=== PATIENT | female | born 1960 | race Caucasian/White ===

== ENCOUNTER 2016-05-20 13:35 | Outpatient (CLI) | payer BC | END 2016-05-20 13:36 | disposition home or self-care (01) | DX: Z12.31 Encounter for screening mammogram for malignant neoplasm of breast (principal) ==

== ENCOUNTER 2016-05-20 13:36 | Outpatient (CLI) | payer BC | END 2016-05-20 13:37 | disposition home or self-care (01) | DX: N95.0 Postmenopausal bleeding (principal); D25.9 Leiomyoma of uterus, unspecified; R93.8 Abnormal findings on diagnostic imaging of other specified body structures ==

== ENCOUNTER 2016-09-24 11:12 | Outpatient (CLI) | payer BC | END 2016-09-24 11:13 | disposition home or self-care (01) | LOC: DI 11:12 | PROVIDERS: ATTEND Internal Medicine Cardiovascular Disease | DX: R01.1 Cardiac murmur, unspecified (principal); I10 Essential (primary) hypertension; I51.7 Cardiomegaly | CPT/HCPCS: 93306 ==

== ENCOUNTER 2016-11-05 11:09 | Outpatient (CLI) | payer BC | END 2016-11-05 11:10 | disposition home or self-care (01) | LOC: DI 11:09 | PROVIDERS: ATTEND Internal Medicine Cardiovascular Disease | DX: Q21.1 Atrial septal defect (principal) | CPT/HCPCS: 93308 ==

== ENCOUNTER 2017-04-13 14:03 | Outpatient (CLI) | payer BC ==
[2017-04-13 13:59] LABS: BASOPHILS # (AUTO) 0.1 10^3/uL (0.0-0.1); BASOPHILS % (AUTO) 0.7 %; EOSINOPHILS # (AUTO) 0.3 10^3/uL (0.0-0.7); EOSINOPHILS % (AUTO) 3.2 %; HCT - HEMATOCRIT 39.6 % (37.0-47.0); HGB - HEMOGLOBIN 13.2 g/dL (12.0-16.0); LYMPHOCYTES % (AUTO) 24.9 %; MEAN CORPUSCULAR HEMOGLOBIN 29.5 pg (27.0-31.0); MEAN CORPUSCULAR HGB CONC 33.4 g/dL (32.0-36.0); MEAN CORPUSCULAR VOLUME 88.3 fL (81.0-99.0); MEAN PLATELET VOLUME 8.3 fL (7.9-10.8); MONOCYTES # (AUTO) 0.4 10^3/uL (0.0-1.0); MONOCYTES % (AUTO) 5.6 %; NEUTROPHILS # (AUTO) 5.2 10^3/uL (1.5-6.6); NEUTROPHILS % (AUTO) 65.6 %; NUCLEATED RED BLOOD CELLS AUTO 0.1 /100WBC; RED BLOOD COUNT 4.48 10^6/uL (4.20-5.40); RED CELL DISTRIBUTION WIDTH 15.3 % (12.0-15.0)
[2017-04-13 14:43] LABS: ALBUMIN/GLOBULIN RATIO 1.4 (1.0-2.2); BILIRUBIN,TOTAL 0.9 mg/dL (0.2-1.0); BUN - BLOOD UREA NITROGEN 22 mg/dL (6-20); CALCIUM 9.3 mg/dL (8.5-10.3); CARBON DIOXIDE - CO2 27 mmol/L (21-32); CHLORIDE 105 mmol/L (101-111); CHOL/HDL RATIO 4.4 (<4.4); CHOLESTEROL 198 mg/dL; CREATININE 0.7 mg/dL (0.4-1.0); GFR - MDRD 86 (>89); GLUCOSE 103 mg/dL (70-100); HDL CHOLESTEROL 45 mg/dL; LDL/HDL RATIO 2.6 (<4.4); POTASSIUM 3.9 mmol/L (3.5-5.0); SODIUM 139 mmol/L (135-145); TOTAL PROTEIN 7.3 g/dL (6.7-8.2); TRIGLYCERIDES 179 mg/dL; URIC ACID 6.1 mg/dL (2.6-7.2); VLDL CHOLESTEROL 36 mg/dL
== END 2017-04-13 14:04 | disposition home or self-care (01) ==
LOC: LAB.WCP 14:03
PROVIDERS: ATTEND Family Medicine
DX: E78.5 Hyperlipidemia, unspecified (principal); E66.9 Obesity, unspecified; E79.0 Hyperuricemia without signs of inflammatory arthritis and tophaceous disease; I10 Essential (primary) hypertension
CPT/HCPCS: 36415; 80053; 80061; 84443; 84550; 85025

== ENCOUNTER 2017-09-14 21:58 | Outpatient (CLI) | payer BC ==
--- NOTE | 2017-09-15 10:04 | Ultrasound Report ---
PELVIC ULTRASOUND: 09/15/2017 CLINICAL INDICATION: Postmenopausal bleeding. COMPARISON: 05/20/2016. TECHNIQUE: Transabdominal pelvic ultrasound performed for global evaluation. Transvaginal pelvic ultrasound performed for detailed evaluation. Real-time scanning performed and static images obtained. FINDINGS: The uterus is anteverted, measuring 9.1 x 7.8 x 6.3 cm. The endometrium is thickened at 15 mm, and demonstrates small cystic lesions. Multiple leiomyomas are again seen. The largest, anterior subserosal, measures 3.4 cm. The ovaries are unremarkable, with the right measuring 2.0 x 1.8 x 1.1 cm and the left measuring 2.3 x 1.8 x 1.1 cm. No free fluid is present. IMPRESSION: 1. THICKENED, HETEROGENEOUS ENDOMETRIUM, NOW DEMONSTRATING MULTIPLE SMALL CYSTIC SPACES. 2. MULTIPLE LEIOMYOMAS. 3. NORMAL OVARIES. TD: 09/15/2017 09:43
== END 2017-09-14 21:59 | disposition home or self-care (01) ==
LOC: DI 21:58
PROVIDERS: ATTEND Obstetrics & Gynecology
DX: N95.0 Postmenopausal bleeding (principal); D25.9 Leiomyoma of uterus, unspecified
CPT/HCPCS: 76830; 76856

== ENCOUNTER 2017-12-11 11:13 | Outpatient (CLI) | payer BC ==
[2017-12-11 11:39] LABS: BASOPHILS % (AUTO) 0.4 %; EOSINOPHILS # (AUTO) 0.1 10^3/uL (0.0-0.7); EOSINOPHILS % (AUTO) 1.7 %; HGB - HEMOGLOBIN 13.8 g/dL (12.0-16.0); LYMPHOCYTES # (AUTO) 2.3 10^3/uL (1.5-3.5); LYMPHOCYTES % (AUTO) 32.4 %; MEAN CORPUSCULAR HEMOGLOBIN 29.7 pg (27.0-31.0); MEAN CORPUSCULAR HGB CONC 33.4 g/dL (32.0-36.0); MEAN CORPUSCULAR VOLUME 89.1 fL (81.0-99.0); MEAN PLATELET VOLUME 8.3 fL (7.9-10.8); MONOCYTES # (AUTO) 0.4 10^3/uL (0.0-1.0); MONOCYTES % (AUTO) 6.2 %; NEUTROPHILS # (AUTO) 4.3 10^3/uL (1.5-6.6); NEUTROPHILS % (AUTO) 59.3 %; PLT - PLATELET COUNT 261 10^3/uL (130-450); RED BLOOD COUNT 4.65 10^6/uL (4.20-5.40); RED CELL DISTRIBUTION WIDTH 15.6 % (12.0-15.0); WHITE BLOOD COUNT 7.2 x10^3/uL (4.8-10.8)
== END 2017-12-11 11:14 | disposition home or self-care (01) ==
LOC: LAB 11:13
PROVIDERS: ATTEND Obstetrics & Gynecology
DX: Z01.812 Encounter for preprocedural laboratory examination (principal); N95.0 Postmenopausal bleeding; N85.00 Endometrial hyperplasia, unspecified
CPT/HCPCS: 36415; 85025; 87640

== ENCOUNTER 2017-12-13 09:22 | Day surgery (SDC) | payer BC ==
--- NOTE | 2017-12-11 11:49 | PREOP HISTORY & PHYSICAL ---
DATE OF SERVICE: 12/13/2017 Physician: Edy Desir MD PREOPERATIVE DIAGNOSES 1. Postmenopausal bleeding. 2. Thickened endometrium. 3. Multiple leiomyoma. 4. Hypertension. 5. Morbid obesity, body mass index 45.8. HISTORY OF PRESENT ILLNESS: Patient is a 56-year-old 1 para 1, postmenopausal woman who reports intermittent bouts of uterine bleeding. Pelvic ultrasound reveals a thickened endometrium at 15 mm with multiple small leiomyoma, the largest being 3.4 and subserosal. Ovaries are normal. She underwent an endometrial biopsy, which revealed late secretory endometrium with negative endometritis, atypia or malignancy. Due to continued bleeding and the 10% false negative rate of endometrial biopsy, a better tissue diagnosis was required. Additionally, investigation of her leiomyomas to ensure no submucosal leiomyomas that could account for her bleeding. Pap smear was normal (08/2017). Patient has a history of a clark vaginal without difficulty other than preeclampsia. PAST MEDICAL HISTORY 1. Patient is a controlled hypertensive. 2. She has been worked up by Cardiology including an echocardiogram and EKG. 3. She has experienced a dramatic loss of weight with diet and exercise, 70 pounds. 4. She did have a history of optic neuritis, that neurology workup is negative. PAST SURGICAL HISTORY: The patient underwent colonoscopy in 2014, is normal. ALLERGIES: SENSITIVE TO LATEX. MEDICATIONS 1. Erythromycin for rosacea. 2. Mini dose aspirin. 3. Lisinopril. 4. Allopurinol. 5. Multiple vitamins and iron. 6. Fish oil. FAMILY HISTORY: Paternal grandmother breast cancer, lymphoma. Mother skin cancer, mother uterine cancer. Paternal grandmother diabetes. Mother, father hypertension. Father with hypercholesterolemia, mother and sister. SOCIAL HISTORY: Currently , no children at home. No drug, tobacco, or alcohol use. 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 PHYSICAL EXAMINATION GENERAL: Well groomed, pleasant, anxious. Obese. HEENT: Dentition in good repair. EOMI. Nonicteric sclerae. NECK: No thyromegaly. LUNGS: Clear, but distant. CARDIAC: Regular. No murmur, no gallop. ABDOMEN: Large pannus, nondistended, no organomegaly. No tenderness. EXTERNAL GENITALIA: Normal Bartholin glands, no atrophy, no lesions, some lichenoid change present. VAGINA: Grade 1 cystocele. CERVIX: No abnormal lesions or secretions. No ulcerations. UTERUS: Normal size, but difficult to tell due to body habitus. ADNEXA: No masses or tenderness noted. Difficult exam due to body habitus. EXTREMITIES: Mild pedal edema. Moves all four extremities well. NEUROLOGIC: Grossly intact motor and sensory. Cranial nerves intact. SKIN: No rash or broken skin noted. ASSESSMENT AND PLAN: The patient is a 56-year-old woman who continues to have endometrial bleeding, and known thickened endometrium. Given her morbid obesity , there is increased risk for hyperplasia and carcinoma. Endometrial biopsy has a 10-12% false positive/false negative rate. Given her fibroids, the sample may not have been accurate. Hysteroscopy is the gold standard for diagnosing uterine bleeding. PLAN: Hysteroscopy with MyoSure including dilatation and curettage, and possible myomectomy. Risks, benefits, and alternatives were reviewed. ACOG brochure reviewed point by point. The patient is fairly healthy, despite age and weight. She is a good candidate for hysteroscopy, which may be done under regional anesthesia, depending on discussion with Anesthesia. Note, her grandmother had an anesthesia REACTION and this has heightened her anxiety. Informed consent paperwork and orders have already been signed and submitted. TD: 12/11/2017 11:02 LEESA
[~2017-12-13 09:22] MED LIST: DEXAMETHASONE 4 MG/ML VIAL IVP ONE; GLYCOPYRROLATE 1 MG/5 ML VIAL IVP ONE; KETOROLAC 30 MG/ML VIAL IVP ONE; MIDAZOLAM 2 MG/2 ML VIAL IVP ONE; NEOSTIGMINE 1 MG/1 ML 10 ML MDV IVP ONE; ONDANSETRON 4 MG/2 ML VIAL IVP ONE; PROPOFOL 200 MG/20 ML VIAL IVP ONE; ROCURONIUM 50 MG/5 ML VIAL IVP ONE; fentaNYL 100 MCG/2 ML VIAL IVP ONE
--- NOTE | 2017-12-13 09:25 | ANESTHESIA ---
Pre-Anesthesia VS, & Labs - Diagnosis Post-menopausal Bleeding; Thickened endometrium - Procedure Myosure Hysterscopy, D&C, possible myomectomy Vital Signs: Vital Signs - 24 hr 12/13/17 09:44 Temperature 36.6 C Respiratory 18 Rate Blood Pressure 135/73 H O2 Saturation 98 Pulse 72 Height 5 ft 7 in Weight (kg) 128.7 kg BMI 44.4 - NPO Last Fluid Intake: 0715 4oz H2O Last Food Intake: 1930 - Is Patient ?: Not Applicable - Lab Results Lab results reviewed: Yes Other Lab Results: Lab results from 12/11/2017 WBC-7.2 Hgb 13.8 Hct 41.4 Plat 261 Home Medications and Allergies Home Medications: Ambulatory Orders Medication Instructions Recorded Confirmed Allopurinol 300 mg PO DAILY 12/12/17 12/13/17 Aspirin [Aspirin EC] 81 mg PO DAILY 12/12/17 12/13/17 Erythromycin Base [Erythromycin] 500 mg PO BID 12/12/17 12/13/17 Furosemide 40 mg PO DAILY 12/12/17 12/13/17 Lisinopril 10 mg PO DAILY 12/12/17 12/13/17 Multivitamin [Multiple Vitamins] 1 each PO DAILY 12/12/17 12/13/17 [place]-3/Dha/Epa/Fish Oil [Fish Oil 1 each PO DAILY 12/12/17 12/13/17 1,000 mg Softgel] Solifenacin Succinate [Vesicare] 5 mg PO DAILY 12/12/17 12/13/17 Allergies/Adverse Reactions: Allergies Allergy/AdvReac Type Severity Reaction Status Date / Time codeine Allergy Anxiety Verified 12/12/17 11:35 gelatin Allergy Unknown Verified 12/12/17 11:39 latex Allergy Rash Verified 12/12/17 11:35 sulfite Allergy Headache Verified 12/12/17 11:35 Anes History & Medical History - Anesthetic History Anesthesia Complications: reports: Other-see comment (Reports elderly grandmother was slow to wake from anesthesia) Family history of Anesthesia Complications: Denies Family history of Malignant Hyperthermia: Denies - Medical History Cardiovascular: reports: Hypertension Pulmonary: reports: None Gastrointestinal: reports: None, Other (Morbidly Obese) Urinary: reports: Incontinence, Frequency Neuro: reports: None Musculoskeletal: reports: Gout Endocrine/Autoimmune: reports: None Blood Disorders: reports: None Skin: reports: Rosacea Smoking Status: Never smoker Psychosocial: reports: No issues indicated - Surgical History General: Colonoscopy Eyes Ears Nose Throat (EENT): Cataracts Results - Echo Results Echo Results: Report reviewed (EF-60-65%, No significant valve disease, mild LVH ) Exam General: Alert, Oriented x3, Cooperative, No acute distress Dental: WNL Mouth Openin Fingerbreadth Neck Mobility: Normal Mallampati classification: II Thyromental Distance: 4-6 cm Respiratory: Lungs clear, Normal breath sounds, No respiratory distress, No accessory muscle use Cardiovascular: Regular rate, Normal S1, Normal S2, No murmurs Mental/Cognitive Status: Alert/Oriented X3, Normal for patient Cognitive Status: Within normal limits Plan Anesthesia Type: General Consent for Procedure(s) Verified and Reviewed: Yes Code Status: Attempt Resuscitation ASA classification: 2-Mild systemic disease Is this case an emergency?: No
[2017-12-13] MEDS ORDERED: LACTATED RINGERS 1,000 ML IV ONE ×2 (09:50→12:11)
[2017-12-13] MEDS ORDERED: BUPIVACAINE 0.25%-EPI 1:200000 PF 30 ML VIAL ONE (10:33)
--- NOTE | 2017-12-13 12:38 | OPERATIVE REPORT ---
Operative Report - General Pre-Op Diagnosis: 1.Postmenopausal bleeding2. Thickened endometrium 3. Morbid obesity Procedure Performed: Diagnostic hysteroscopy; Myosure polypectomy and myomectomy; endometrial curettage Post Op Diagnosis: Extensive endometrial polyps; endocervical polyps; small fundal submucosal - Procedure Note Primary Surgeon: Edy Desir MD, F ACOG Anesthesia Provider: Mo Blanchard, certified nurse enrollment management manager Anesthesia Technique: General ET tube Pathology: Endocervical curetting; polyps and endometrial shaving(Contains part of myoma) IV Fluids (mL): 1,200 Estimated Blood Loss (mL): 10 Urine Output (mL): 100 (Approximated, patient straight cathed at the beginning of the procedure) Complications: None
[2017-12-13 13:46] VITALS: BP 118/62
--- NOTE | 2017-12-13 17:21 | OPERATIVE REPORT ---
DATE OF SERVICE: 12/13/2017 Physician: Edy Desir MD PREOPERATIVE DIAGNOSES 1. Postmenopausal bleeding. 2. Thickened endometrium on ultrasound (approximately 15 mm). 3. Multiple leiomyoma. 4. Hypertension. 5. Morbid obesity, BMI 45.8. POSTOPERATIVE DIAGNOSES 1. Multiple endometrial benign-appearing polyps. 2. Small submucosal fibroid in the right fundus. 3. Endocervical polyp. 4. Cervicitis. 5. Hematuria. PROCEDURES 1. Diagnostic hysteroscopy. 2. Hysteroscopic polypectomy with MyoSure. 3. Hysteroscopic myomectomy with MyoSure. 4. Endocervical curettage. SURGEON: Edy Desir MD, FACOG, FICS. ANESTHESIA PROVIDER: Farhana Blanchard, certified nurse rinkman. ANESTHESIA TECHNIQUE: General, ET tube placed. PATHOLOGY 1. Endocervical curettings. 2. Endometrial polyps and endometrial shavings, including myoma specimen. SPECIMENS IV FLUIDS: 1200 mL ESTIMATED BLOOD LOSS: 10 mL URINE OUTPUT: 100 mL approximately, patient straight catheterized at the beginning of the procedure. COMPLICATIONS: None. OPERATIVE FINDINGS 1. Exam of the external genitalia finds no evident lesions. Vagina has a large cystocele with UV mobility and uterine mobility. The cervix os has a large ectropion and seems somewhat inflamed. Uterus palpates globular and with retroversion. Preprocedure sounding is 6.5 cm. 2. Hysteroscopic examination finds endocervical polyps at the lower distal half of the canal. The entire cavity is filled with multiple benign-appearing polyps, some cystic and others fleshy, possibly degenerating leiomyoma. After shaving the lining to provide better visualization., there was an area in the right fundus anteriorly that was found to be a small leiomyoma, which was subsequently removed. Postoperative photos document removal of all polypoid and significant leiomyoma. 3. In inspecting the urethral meatus, there was blood stained urine present. Preoperative catheterization was not traumatic, and therefore, we repeated a catheterization to ensure there was no intracystic source of hematuria. TECHNIQUE: Prior to the procedure, I met the patient and her daughter in the OR holding room and reviewed indications, mechanics, risks/benefits and alternatives. All questions were answered, and informed consent was signed. Patient was brought to the operating room, placed in supine position on the OR table. She was uneventfully induced and intubated. She was moved to the low dorsal lithotomy position in [facility]. She was prepped and draped in the customary sterile fashion. Timeout briefing was done per protocol. Exam under anesthesia was conducted. Clamshell speculum was placed in the cervix, was totally visualized. There seemed to be cervicitis, and therefore, endocervical curettage was done to ensure there was no hidden dysplastic change. Uterus was sounded to 6.5 cm. A gentle application of Hegar probes was done to dilate the cervix to a #6. MyoSure pump was calibrated and zeroed. Video hysteroscope was white balanced and prepared for hysteroscopy. It was uneventfully inserted through the endocervical canal, displacing several polyps. The endometrium was then assessed and photographed. A majority of the endometrium was initially obscured due to polyps. A MyoSure light probe was then introduced into the uterine cavity. Under hysteroscopic visualization, all the polyps were systematically excised. Reference photos. In the right fundal area, there was a nodular defect that was felt to be submucosal fibroid. This was uneventfully shelled out. In the void, there was no bleeding. The hysteroscope then was used to visualize the endocervical canal using the Myosure. In a systematic fashion, the endocervical polyps were uneventfully excised in total. Reference photos. There was no significant bleeding. Packing material was placed in the vaginal canal. Due to aforementioned hematuria, straight cath urine specimen was obtained and sent. Patient was uneventfully awakened from general anesthesia and extubated. She was taken to the recovery room in stable condition. Total hysteroscopic fluid deficit was 970. Intraoperative events and photos were reviewed with the patient. Warning sign and callback instructions were given. Patient will be discharged when stable. PLAN 1. Follow up will be in 2 weeks. 2. Patient is recommended to use ibuprofen for pain control, and an additional prescription for Percocet was given. TD: 12/13/2017 13:16 LEESA
== END 2017-12-13 09:23 | disposition home or self-care (01) ==
LOC: SDS 09:22
PROVIDERS: ATTEND Obstetrics & Gynecology
PROC: 0UB98ZZ Excision of Uterus, Via Natural or Artificial Opening Endoscopic (ICD-10-PCS; 2017-12-13)
PROC: 0UBC8ZZ Excision of Cervix, Via Natural or Artificial Opening Endoscopic (ICD-10-PCS; principal; 2017-12-13 10:30)
PROC: 0UDB8ZX Extraction of Endometrium, Via Natural or Artificial Opening Endoscopic, Diagnostic (ICD-10-PCS; 2017-12-13 10:30)
DX: N95.0 Postmenopausal bleeding (principal); R93.8 Abnormal findings on diagnostic imaging of other specified body structures; E66.01 Morbid (severe) obesity due to excess calories; Z68.42 Body mass index [BMI] 45.0-49.9, adult; N84.0 Polyp of corpus uteri; D25.0 Submucous leiomyoma of uterus; I10 Essential (primary) hypertension; N72 Inflammatory disease of cervix uteri; R31.9 Hematuria, unspecified
CPT/HCPCS: 58561; J7120

== ENCOUNTER 2018-05-01 08:31 | Outpatient (CLI) | payer BC ==
[2018-05-01 12:37] LABS: ALBUMIN 4.2 g/dL (3.2-5.5); ALBUMIN/GLOBULIN RATIO 1.7 (1.0-2.2); ALKALINE PHOSPHATASE 82 IU/L (42-121); ALT ALANINE AMINOTRANSFERASE 18 IU/L (10-60); AST ASPARTATE AMINOTRANSFERASE 17 IU/L (10-42); BILIRUBIN,TOTAL 1.4 mg/dL (0.2-1.0); BUN - BLOOD UREA NITROGEN 21 mg/dL (6-20); CALCIUM 9.1 mg/dL (8.5-10.3); CARBON DIOXIDE - CO2 29 mmol/L (21-32); CHLORIDE 102 mmol/L (101-111); CHOL/HDL RATIO 4.5 (<4.4); CHOLESTEROL 222 mg/dL; CREATININE 0.6 mg/dL (0.4-1.0); GFR - MDRD 103 (>89); GLUCOSE 103 mg/dL (70-100); HDL CHOLESTEROL 49 mg/dL; LDL CHOLESTEROL,CALCULATED 149 mg/dL; SODIUM 138 mmol/L (135-145); TOTAL PROTEIN 6.7 g/dL (6.7-8.2); VLDL CHOLESTEROL 24 mg/dL
[2018-05-01 12:43] LABS: BASOPHILS % (AUTO) 0.6 %; EOSINOPHILS # (AUTO) 0.2 10^3/uL (0.0-0.7); EOSINOPHILS % (AUTO) 2.7 %; HGB - HEMOGLOBIN 13.4 g/dL (12.0-16.0); LYMPHOCYTES # (AUTO) 1.7 10^3/uL (1.5-3.5); LYMPHOCYTES % (AUTO) 25.8 %; MEAN CORPUSCULAR HEMOGLOBIN 29.8 pg (27.0-31.0); MEAN CORPUSCULAR HGB CONC 33.9 g/dL (32.0-36.0); MEAN CORPUSCULAR VOLUME 87.8 fL (81.0-99.0); MEAN PLATELET VOLUME 7.6 fL (7.9-10.8); MONOCYTES # (AUTO) 0.4 10^3/uL (0.0-1.0); MONOCYTES % (AUTO) 5.9 %; NEUTROPHILS # (AUTO) 4.2 10^3/uL (1.5-6.6); PLT - PLATELET COUNT 263 10^3/uL (130-450); RED CELL DISTRIBUTION WIDTH 14.7 % (12.0-15.0); WHITE BLOOD COUNT 6.5 x10^3/uL (4.8-10.8)
[2018-05-01 13:11] LABS: HB2 TOTAL 14.4 g/dL; HEMOGLOBIN A1C 0.49 g/dL; HEMOGLOBIN A1C % 5.3 % (4.6-6.2)
== END 2018-05-01 23:59 | disposition home or self-care (01) ==
LOC: LAB.WCP 08:31
PROVIDERS: ATTEND Family Medicine
DX: I10 Essential (primary) hypertension (principal); E78.5 Hyperlipidemia, unspecified; R73.01 Impaired fasting glucose
CPT/HCPCS: 36415; 80053; 80061; 83036; 83721; 85025

== ENCOUNTER 2019-01-22 15:10 | Outpatient (CLI) | payer BC ==
--- NOTE | 2019-01-23 08:46 | Mammography Report ---
Reason: ROUTINE MAMMO Procedure Date: 01/22/2019 Accession Number: [id number] / [id number] Procedure: MGN - Screening Mammo Dig Bilat CPT Code: FULL RESULT: EXAM: Screening Mammo Dig Bilat DATE: 01/22/2019 3:33 PM CLINICAL HISTORY: Screening TECHNIQUE: (B) - Bilateral CC and MLO views were obtained. COMPARISON: 05/20/2016, 05/12/2015 PARENCHYMAL PATTERN: (A) - The breasts demonstrate scattered fibroglandular densities bilaterally. FINDINGS: Unchanged tiny right axillary tail intramammary lymph node of no significance. There are no suspicious masses, calcifications, or areas of distortion. IMPRESSION: Negative examination. BI-RADS category 1. RECOMMENDATION: (ANNUAL) - Recommend routine annual screening mammography. BI-RADS CATEGORY: (1) - Negative. STANDARD QUALIFYING STATEMENTS: 1. This examination was not reviewed with the aid of Computer-Aided Detection (CAD). 2. A negative or benign imaging report should not preclude biopsy if clinically suspicious findings are present. 3. Dense breasts may obscure an underlying neoplasm. 4. This examination was reviewed without the aid of 3D breast imaging (tomosynthesis).
== END 2019-01-22 15:11 | disposition home or self-care (01) ==
LOC: DI.N 15:10
DX: Z12.31 Encounter for screening mammogram for malignant neoplasm of breast (principal)
CPT/HCPCS: 77067

== ENCOUNTER 2019-05-24 08:00 | Outpatient (CLI) | payer BC ==
[2019-05-24 12:47] LABS: BASOPHILS % (AUTO) 0.4 %; EOSINOPHILS # (AUTO) 0.1 10^3/uL (0.0-0.7); EOSINOPHILS % (AUTO) 1.7 %; HGB - HEMOGLOBIN 12.5 g/dL (12.0-16.0); LYMPHOCYTES # (AUTO) 1.8 10^3/uL (1.5-3.5); LYMPHOCYTES % (AUTO) 23.5 %; MEAN CORPUSCULAR HGB CONC 30.6 g/dL (32.0-36.0); MEAN CORPUSCULAR VOLUME 91.5 fL (81.0-99.0); MEAN PLATELET VOLUME 9.8 fL (7.9-10.8); MONOCYTES # (AUTO) 0.5 10^3/uL (0.0-1.0); MONOCYTES % (AUTO) 6.6 %; NEUTROPHILS # (AUTO) 5.1 10^3/uL (1.5-6.6); NEUTROPHILS % (AUTO) 67.5 %; PLT - PLATELET COUNT 272 10^3/uL (130-450); RED BLOOD COUNT 4.46 10^6/uL (4.20-5.40); RED CELL DISTRIBUTION WIDTH 14.7 % (12.0-15.0); WHITE BLOOD COUNT 7.6 x10^3/uL (4.8-10.8)
[2019-05-24 13:02] LABS: ALBUMIN 4.1 g/dL (3.2-5.5); ALBUMIN/GLOBULIN RATIO 1.6 (1.0-2.2); ALKALINE PHOSPHATASE 68 IU/L (42-121); ALT ALANINE AMINOTRANSFERASE 17 IU/L (10-60); AST ASPARTATE AMINOTRANSFERASE 15 IU/L (10-42); BILIRUBIN,TOTAL 1.1 mg/dL (0.2-1.0); BUN - BLOOD UREA NITROGEN 26 mg/dL (6-20); CALCIUM 8.9 mg/dL (8.5-10.3); CARBON DIOXIDE - CO2 26 mmol/L (21-32); CHLORIDE 102 mmol/L (101-111); CHOL/HDL RATIO 4.7 (<4.4); CHOLESTEROL 208 mg/dL; CREATININE 0.7 mg/dL (0.4-1.0); GFR - MDRD 86 (>89); GLUCOSE 91 mg/dL (70-100); HDL CHOLESTEROL 44 mg/dL; LDL CHOLESTEROL,CALCULATED 135 mg/dL; LDL/HDL RATIO 3.1 (<4.4); SODIUM 140 mmol/L (135-145); TOTAL PROTEIN 6.7 g/dL (6.7-8.2); URIC ACID 5.6 mg/dL (2.6-7.2); VLDL CHOLESTEROL 29 mg/dL
== END 2019-05-24 23:59 | disposition home or self-care (01) ==
LOC: LAB.WCP 08:00
PROVIDERS: ATTEND Family Medicine
DX: E78.5 Hyperlipidemia, unspecified (principal); E79.0 Hyperuricemia without signs of inflammatory arthritis and tophaceous disease
CPT/HCPCS: 36415; 80053; 80061; 83721; 84443; 84550; 85025

== ENCOUNTER 2019-08-20 13:15 | Emergency (ER) | payer BC ==
--- NOTE | 2019-08-20 13:26 | ED Physician Documentation ---
PD HPI ABD PAIN - Stated complaint Stated Complaint: L SIDE PX - History obtained from History obtained from: Patient - History of Present Illness Timing - onset: How many hours ago (5) Timing - duration: Hours (5) Timing - details: Abrupt onset, Still present Quality: Aching, Sharp, Pain Location: LLQ Radiation: Left flank Improved by: No: Eating, Laying still, Position Worsened by: No: Eating, Moving, Breathing, Position, Palpation Associated symptoms: Nausea, Loss of appetite. No: Fever, Vomiting, Diarrhea, Chest pain, Near syncope / syncope Similar symptoms before: Has not had sx before Recently seen: Not recently seen Review of Systems Constitutional: denies: Fever, Chills, Myalgias Nose: denies: Rhinorrhea / runny nose, Congestion Throat: denies: Sore throat Cardiac: denies: Chest pain / pressure Respiratory: denies: Cough GI: reports: Abdominal Pain, Nausea. denies: Vomiting, Diarrhea : denies: Dysuria, Hematuria Skin: denies: Rash, Lesions Musculoskeletal: reports: Back pain. denies: Neck pain Neurologic: denies: Generalized weakness, Focal weakness, Numbness, Near syncope PD PAST MEDICAL HISTORY - Past Medical History Neuro: None GI: None, Other (Morbidly Obese) : None - Present Medications Home Medications: Ambulatory Orders Medication Instructions Recorded Confirmed Aspirin [Aspirin EC] 81 mg PO DAILY 12/12/17 12/13/17 Erythromycin Base [Erythromycin] 500 mg PO BID 12/12/17 12/13/17 Furosemide 40 mg PO DAILY 12/12/17 12/13/17 Multivitamin [Multiple Vitamins] 1 each PO DAILY 12/12/17 12/13/17 [place]-3/Dha/Epa/Fish Oil [Fish Oil 1 each PO DAILY 12/12/17 12/13/17 1,000 mg Softgel] Solifenacin Succinate [Vesicare] 5 mg PO DAILY 12/12/17 12/13/17 allopurinoL [Allopurinol] 300 mg PO DAILY 12/12/17 12/13/17 lisinopriL [Lisinopril] 10 mg PO DAILY 12/12/17 12/13/17 Ibuprofen [Motrin] 600 mg PO TID PRN #25 tab 08/20/19 Ondansetron Odt [Zofran] 4 mg TL Q6H PRN #20 tablet 08/20/19 Oxycodone HCl/Acetaminophen 1 each PO Q4H PRN #20 tablet 08/20/19 [Percocet 5-325 mg Tablet] Tamsulosin [Flomax] 0.4 mg PO DAILY #5 capsule 08/20/19 - Allergies Allergies/Adverse Reactions: Allergies Allergy/AdvReac Type Severity Reaction Status Date / Time codeine Allergy Anxiety Verified 08/20/19 13:26 gelatin Allergy Unknown Verified 08/20/19 13:26 latex Allergy Rash Verified 08/20/19 13:26 sulfite Allergy Headache Verified 08/20/19 13:26 - Social History Smoking Status: Never smoker PD ED PE NORMAL - Vitals Vital signs reviewed: Yes - General General: Alert and oriented X 3, Well developed/nourished, Other (Appears in considerable pain and has spontaneous movement without improvement) - HEENT HEENT: Pharynx benign - Neck Neck: Supple, no meningeal sign, No adenopathy - Cardiac Cardiac: RRR, No murmur - Respiratory Respiratory: Clear bilaterally - Abdomen Abdomen: Normal bowel sounds, Soft, Non tender, Non distended, No organomegaly, Other (obese) - Back Back: No spinal TTP, Other (Moderate right CVA tenderness) - Derm Derm: Normal color, Warm and dry - Neuro Neuro: Alert and oriented X 3, No motor deficit, Normal speech Results - Vitals Vitals: Vital Signs - 24 hr 08/20/19 08/20/19 08/20/19 13:18 14:34 15:13 Temperature 36.7 C 36.8 C Heart Rate 86 84 68 Respiratory 24 18 20 Rate Blood Pressure 159/96 H 133/73 H 123/73 O2 Saturation 99 99 100 Oxygen O2 Source Room air - Labs Labs: Laboratory Tests 08/20/19 08/20/19 08/20/19 13:51 13:51 13:57 WBC 12.7 H RBC 4.91 Hgb 14.5 Hct 44.2 MCV 90.0 MCH 29.5 MCHC 32.8 RDW 14.7 Plt Count 279 MPV 9.8 Neut # (Auto) 11.3 H Lymph # (Auto) 1.0 L Walsh # (Auto) 0.3 Eos # (Auto) 0.0 Baso # (Auto) 0.0 Absolute Nucleated RBC 0.00 Nucleated RBC % 0.0 Sodium 138 Potassium 4.1 Chloride 101 Carbon Dioxide 26 Anion Gap 11.0 BUN 28 H Creatinine 0.8 Estimated GFR (MDRD) 73 L Glucose 131 H Calcium 9.4 Total Bilirubin 1.5 H AST 18 ALT 21 Alkaline Phosphatase 103 Total Protein 7.9 Albumin 4.8 Globulin 3.1 Albumin/Globulin Ratio 1.5 Lipase 26 Urine Color YELLOW Urine Clarity CLEAR Urine pH 5.0 Ur Specific [place] 1.010 Urine Protein NEGATIVE Urine Glucose (UA) NEGATIVE Urine Ketones NEGATIVE Urine Occult Blood MODERATE H Urine Nitrite NEGATIVE Urine Bilirubin NEGATIVE Urine Urobilinogen 0.2 (NORMAL) Ur Leukocyte Esterase NEGATIVE Urine RBC 0-5 Urine WBC 0-3 Ur Squamous Epith Cells RARE Squamous Urine Bacteria None Seen Ur Microscopic Review INDICATED Urine Culture Comments NOT INDICATED - Rads (name of study) KUB CT Radiology: Prelim report reviewed (left 4 mm ureteral stone with moderate hydronephrosis. No other acute process. Incidental large gallstone. ), See rad report PD MEDICAL DECISION MAKING - ED course Complexity details: re-evaluated patient (Much improved with IV medications here. We discussed the expected course and treatment for the ureterolithiasis. She is comfortable for discharge.), considered differential, d/w patient Departure - Departure Disposition: 01 Home, Self Care Clinical Impression: Flank pain, acute, Ureterolithiasis Condition: Stable Record reviewed to determine appropriate education?: Yes Instructions: ED Stone Renal W Colic Follow-Up: Dagoberto Parada MD [Primary Care Provider] - Adalid Emmanuel MD [Provider Admit Priv/Credential] - Prescriptions: Ibuprofen [Motrin] 600 mg PO TID PRN #25 tab PRN Reason: Pain Ondansetron Odt [Zofran] 4 mg TL Q6H PRN #20 tablet PRN Reason: Nausea / Vomiting Oxycodone HCl/Acetaminophen [Percocet 5-325 mg Tablet] 1 each PO Q4H PRN #20 tablet PRN Reason: pain Tamsulosin [Flomax] 0.4 mg PO DAILY #5 capsule Comments: Adequate hydration to help improve flow through the the ureter. There is no need to over hydrate per se. Anti-inflammatories such as ibuprofen 3 times a day for the next several days to a week. Add ondansetron if needed for nausea and Tylenol or oxycodone as needed for worse pain. Kidney stones can be quite painful so return if the oral medications are not adequate. Most the time once it quiets down like it is currently, it will be controllable with oral medicines at home. Add tamsulosin daily to help reduce ureteral spasms and help promote the stone passage. Follow-up with your primary care or urology if not improved over the next several days to week and return sooner if worse symptoms. Discharge Date/Time: 08/20/19 15:34
[2019-08-20] MEDS ORDERED: ONDANSETRON 4 MG/2 ML VIAL IVP STA (13:46)
[2019-08-20] MEDS ORDERED: KETOROLAC 30 MG/ML VIAL IVP STA (13:46)
[2019-08-20] MEDS ORDERED: HYDROmorphone 1 MG/ML CARPUJECT IVP STA (13:46)
[2019-08-20 14:03] LABS: BASOPHILS % (AUTO) 0.3 %; HGB - HEMOGLOBIN 14.5 g/dL (12.0-16.0); MEAN CORPUSCULAR HEMOGLOBIN 29.5 pg (27.0-31.0); MEAN CORPUSCULAR HGB CONC 32.8 g/dL (32.0-36.0); MEAN PLATELET VOLUME 9.8 fL (7.9-10.8); MONOCYTES # (AUTO) 0.3 10^3/uL (0.0-1.0); MONOCYTES % (AUTO) 2.6 %; NEUTROPHILS # (AUTO) 11.3 10^3/uL (1.5-6.6); NEUTROPHILS % (AUTO) 88.6 %; PLT - PLATELET COUNT 279 10^3/uL (130-450); RED BLOOD COUNT 4.91 10^6/uL (4.20-5.40); RED CELL DISTRIBUTION WIDTH 14.7 % (12.0-15.0); WHITE BLOOD COUNT 12.7 x10^3/uL (4.8-10.8)
[2019-08-20 14:14] LABS: BILIRUBIN,URINE NEGATIVE (NEGATIVE); GLUCOSE, URINE (UA) NEGATIVE (NEGATIVE); KETONES,URINE (UA) NEGATIVE (NEGATIVE); LEUKOCYTE ESTERASE, URINE NEGATIVE (NEGATIVE); NITRITE,URINE NEGATIVE (NEGATIVE); OCCULT BLOOD,URINE MODERATE (NEGATIVE); PROTEIN,URINE NEGATIVE (NEGATIVE); UROBILINOGEN,URINE 0.2 (NORMAL) E.U./dL (NORMAL)
[2019-08-20 14:16] LABS: CLARITY,URINE CLEAR (CLEAR)
[2019-08-20 14:18] LABS: ALBUMIN 4.8 g/dL (3.2-5.5); ALBUMIN/GLOBULIN RATIO 1.5 (1.0-2.2); BILIRUBIN,TOTAL 1.5 mg/dL (0.2-1.0); CALCIUM 9.4 mg/dL (8.5-10.3); CREATININE 0.8 mg/dL (0.4-1.0); TOTAL PROTEIN 7.9 g/dL (6.7-8.2)
[2019-08-20 14:22] LABS: BACTERIA,URINE None Seen /HPF (None Seen); RBC,URINE 0-5 /HPF (0-5); SQUAMOUS EPITHELIAL CELL,UR RARE Squamous (<= Few)
--- NOTE | 2019-08-20 14:51 | CT Report ---
Reason: left flank pain without injury for 5 hrs Procedure Date: 08/20/2019 Accession Number: [id number] / [id number] Procedure: CT - Abdomen/Pelvis WO CPT Code: Final Report FULL RESULT: EXAM: CT ABDOMEN AND PELVIS EXAM DATE: 08/20/2019 02:19 PM. CLINICAL HISTORY: Left flank pain without injury for 5 hrs. COMPARISONS: None. TECHNIQUE: Routine helical CT imaging was performed through the abdomen and pelvis. IV contrast: None. Enteric contrast: No. Reconstructions: Coronal and sagittal. In accordance with CT protocol optimization, one or more of the following dose reduction techniques were utilized for this exam: automated exposure control, adjustment of mA and/or KV based on patient size, or use of iterative reconstructive technique. FINDINGS: Lung Bases: Unremarkable. Liver: Hepatomegaly. Gallbladder/Bile Ducts: 3 cm gallstone Spleen: Top normal 13 cm Pancreas: Normal. Adrenal Glands: Normal. Kidneys: Right kidney unremarkable. Left kidney moderate hydroureteronephrosis down to a 9 x 5 mm calcification in the mid ureter at L4 level. There is perirenal stranding and perirenal fluid. There is periureteral stranding and periureteral fluid. Peritoneal Cavity/Bowel: diverticulosis. No free fluid, free air or adenopathy. No masses or acute inflammatory process. The appendix is well visualized and normal. Pelvic Organs: Normal. The bladder and visualized pelvic organs are within normal limits. Vasculature: No aneurysms or other significant abnormality. Bones: No significant abnormality. Other: None. IMPRESSION: 1. Left kidney moderate hydroureteronephrosis down to a 9 x 5 mm calcification in the mid ureter at L4 level. There is perirenal and periureteral stranding and fluid. 2. 3 cm gallstone. 3. Hepatomegaly. 4. Diverticulosis RADIA
[2019-08-20] MEDS ORDERED: DEXAMETHASONE 10 MG/ML VIAL IVP STA (14:56)
[2019-08-20 15:15] VITALS: BP 123/73
== END 2019-08-20 15:34 | disposition home or self-care (01) ==
LOC: ED 13:15
DX: N13.2 Hydronephrosis with renal and ureteral calculous obstruction (principal)
CPT/HCPCS: 36415; 74176; 80053; 81001; 83690; 85025; 96374; 96375; 99284; 99285; J1170; 81003; 87086

== ENCOUNTER 2019-09-10 08:00 | Outpatient (CLI) | payer BC, OTHER ==
[2019-09-10 17:54] LABS: BILIRUBIN,URINE NEGATIVE (NEGATIVE); GLUCOSE, URINE (UA) NEGATIVE (NEGATIVE); KETONES,URINE (UA) NEGATIVE (NEGATIVE); LEUKOCYTE ESTERASE, URINE NEGATIVE (NEGATIVE); NITRITE,URINE NEGATIVE (NEGATIVE); OCCULT BLOOD,URINE NEGATIVE (NEGATIVE); PROTEIN,URINE NEGATIVE (NEGATIVE); UROBILINOGEN,URINE 0.2 (NORMAL) E.U./dL (NORMAL)
[2019-09-10 17:55] LABS: CLARITY,URINE CLEAR (CLEAR)
== END 2019-09-10 08:01 | disposition home or self-care (01) ==
LOC: LAB.WCP 08:00
PROVIDERS: ATTEND Family Medicine
DX: N20.1 Calculus of ureter (principal)
CPT/HCPCS: 81001; 81003; 87086

== ENCOUNTER 2020-06-05 09:53 | Outpatient (CLI) | payer BC ==
[2020-06-05 11:27] LABS: BASOPHILS # (AUTO) 0.1 10^3/uL (0.0-0.1); BASOPHILS % (AUTO) 0.6 %; EOSINOPHILS # (AUTO) 0.1 10^3/uL (0.0-0.7); EOSINOPHILS % (AUTO) 1.8 %; HGB - HEMOGLOBIN 13.7 g/dL (12.0-16.0); LYMPHOCYTES # (AUTO) 2.1 10^3/uL (1.5-3.5); LYMPHOCYTES % (AUTO) 27.3 %; MEAN CORPUSCULAR HEMOGLOBIN 29.3 pg (27.0-31.0); MEAN CORPUSCULAR HGB CONC 31.8 g/dL (32.0-36.0); MEAN CORPUSCULAR VOLUME 92.3 fL (81.0-99.0); MEAN PLATELET VOLUME 9.7 fL (7.9-10.8); MONOCYTES # (AUTO) 0.5 10^3/uL (0.0-1.0); MONOCYTES % (AUTO) 6.9 %; NEUTROPHILS # (AUTO) 4.9 10^3/uL (1.5-6.6); NEUTROPHILS % (AUTO) 63.3 %; PLT - PLATELET COUNT 290 10^3/uL (130-450); RED BLOOD COUNT 4.67 10^6/uL (4.20-5.40); RED CELL DISTRIBUTION WIDTH 15.2 % (12.0-15.0); WHITE BLOOD COUNT 7.7 x10^3/uL (4.8-10.8)
[2020-06-05 11:45] LABS: ALBUMIN 4.5 g/dL (3.2-5.5); ALBUMIN/GLOBULIN RATIO 1.6 (1.0-2.2); ALKALINE PHOSPHATASE 92 IU/L (42-121); ALT ALANINE AMINOTRANSFERASE 24 IU/L (10-60); AST ASPARTATE AMINOTRANSFERASE 19 IU/L (10-42); BILIRUBIN,TOTAL 1.3 mg/dL (0.2-1.0); BUN - BLOOD UREA NITROGEN 23 mg/dL (6-20); CALCIUM 9.6 mg/dL (8.5-10.3); CARBON DIOXIDE - CO2 27 mmol/L (21-32); CHLORIDE 102 mmol/L (101-111); CHOL/HDL RATIO 4.7 (<4.4); CHOLESTEROL 229 mg/dL; CREATININE 0.7 mg/dL (0.4-1.0); GLUCOSE 111 mg/dL (70-100); HDL CHOLESTEROL 49 mg/dL; LDL CHOLESTEROL,CALCULATED 145 mg/dL; TOTAL PROTEIN 7.4 g/dL (6.7-8.2); VLDL CHOLESTEROL 35 mg/dL
== END 2020-06-05 09:54 | disposition home or self-care (01) ==
LOC: LAB.N 09:53
PROVIDERS: ATTEND Family Medicine
DX: E78.5 Hyperlipidemia, unspecified (principal); I10 Essential (primary) hypertension
CPT/HCPCS: 36415; 80053; 80061; 83721; 84443; 85025

== ENCOUNTER 2020-11-16 13:27 | Outpatient (CLI) | payer BC ==
--- NOTE | 2020-11-17 12:57 | Mammography Report ---
BILATERAL DIGITAL SCREENING MAMMOGRAM 3D/2D: 11/16/2020 CLINICAL: Routine screening. Comparison is made to exams dated: 01/22/2019 mammogram, 05/20/2016 mammogram, 05/12/2015 mammogram, 08/28/2013 mammogram, 02/09/2012 mammogram, and 02/09/2012 ultrasound - [facility]. Th e tissue of both breasts is predominantly fatty. No significant masses, calcifications, or other findings are seen in either breast. There has been no significant interval change. IMPRESSION: NEGATIVE There is no mammographic evidence of malignancy. A 1 year screening mammogram is recommended. This exam was interpreted at Station ID: [id number]. NOTE: For mammograms, a report in lay terms will be sent to the patient. Approximately 15% of breast malignancies will not be visualized mammographically. In the management of a palpable breast mass, a negative mammogram must not discourage biopsy of a clinically suspicious lesion. Electronically Signed By: Jeremias Roberson M.D., jr/chiqui:11/16/2020 14:37:39 ACR BI-RADS Category 1: Negative 3341F PARENCHYMAL PATTERN: (F) - The breast(s) demonstrate(s) diffuse fatty replacement. BI-RADS CATEGORY: (1) - 1 RECOMMENDATION: (ANNUAL) - Recommend routine annual screening mammography. [id number] 1 year screening LATERALITY: (B)
== END 2020-11-16 13:28 | disposition home or self-care (01) ==
LOC: DI 13:27
DX: Z12.31 Encounter for screening mammogram for malignant neoplasm of breast (principal)

== ENCOUNTER 2021-01-14 08:00 | Outpatient (CLI) | payer BC, OTHER | END 2021-01-14 23:59 | disposition home or self-care (01) | LOC: LAB.N 08:00 | PROVIDERS: ATTEND Physician Assistant Medical | DX: L02.91 Cutaneous abscess, unspecified (principal) | CPT/HCPCS: 87070; 87205 ==

== ENCOUNTER 2021-08-05 09:41 | Outpatient (CLI) | payer OTHER ==
[2021-08-05 11:48] LABS: BASOPHILS % (AUTO) 0.6 %; EOSINOPHILS # (AUTO) 0.1 10^3/uL (0.0-0.7); HCT - HEMATOCRIT 43.4 % (37.0-47.0); LYMPHOCYTES # (AUTO) 2.2 10^3/uL (1.5-3.5); LYMPHOCYTES % (AUTO) 30.2 %; MEAN CORPUSCULAR HEMOGLOBIN 29.2 pg (27.0-31.0); MEAN CORPUSCULAR HGB CONC 32.3 g/dL (32.0-36.0); MEAN CORPUSCULAR VOLUME 90.4 fL (81.0-99.0); MONOCYTES # (AUTO) 0.5 10^3/uL (0.0-1.0); MONOCYTES % (AUTO) 7.5 %; NEUTROPHILS # (AUTO) 4.3 10^3/uL (1.5-6.6); NEUTROPHILS % (AUTO) 60.4 %; PLT - PLATELET COUNT 284 10^3/uL (130-450); RED CELL DISTRIBUTION WIDTH 14.9 % (12.0-15.0); WHITE BLOOD COUNT 7.1 x10^3/uL (4.8-10.8)
[2021-08-05 12:27] LABS: ALBUMIN 4.6 g/dL (3.2-5.5); ALBUMIN/GLOBULIN RATIO 1.6 (1.0-2.2); ALKALINE PHOSPHATASE 85 IU/L (42-121); ALT ALANINE AMINOTRANSFERASE 27 IU/L (10-60); AST ASPARTATE AMINOTRANSFERASE 22 IU/L (10-42); BILIRUBIN,TOTAL 1.8 mg/dL (0.2-1.0); BUN - BLOOD UREA NITROGEN 25 mg/dL (6-20); CALCIUM 9.6 mg/dL (8.5-10.3); CARBON DIOXIDE - CO2 26 mmol/L (21-32); CHLORIDE 101 mmol/L (101-111); CHOL/HDL RATIO 4.5 (<4.4); CHOLESTEROL 217 mg/dL; CREATININE 0.8 mg/dL (0.4-1.0); GFR - MDRD 73 (>89); GLUCOSE 119 mg/dL (70-100); HDL CHOLESTEROL 48 mg/dL; LDL CHOLESTEROL,CALCULATED 141 mg/dL; LDL/HDL RATIO 2.9 (<4.4); SODIUM 138 mmol/L (135-145); TOTAL PROTEIN 7.5 g/dL (6.7-8.2); TRIGLYCERIDES 140 mg/dL; URIC ACID 5.5 mg/dL (2.6-7.2); VLDL CHOLESTEROL 28 mg/dL
== END 2021-08-05 09:42 | disposition home or self-care (01) ==
LOC: LAB.N 09:41
PROVIDERS: ATTEND Family Medicine
DX: Z00.00 Encounter for general adult medical examination without abnormal findings (principal); R73.01 Impaired fasting glucose; E78.5 Hyperlipidemia, unspecified; E79.0 Hyperuricemia without signs of inflammatory arthritis and tophaceous disease
CPT/HCPCS: 36415; 80053; 80061; 81599; 83036; 83721; 84550; 85025

== ENCOUNTER 2022-01-19 14:37 | Outpatient (CLI) | payer OTHER ==
--- NOTE | 2022-01-21 11:29 | Mammography Report ---
BILATERAL DIGITAL SCREENING MAMMOGRAM 3D/2D: 01/19/2022 CLINICAL: Routine screening. Comparison is made to exams dated: 11/16/2020 mammogram, 01/22/2019 mammogram, 05/20/2016 mammogram, mammogram, 08/28/2013 mammogram, and 02/09/2012 mammogram - Located within [facility]. Both breasts are almost entirely fatty (category a/<25% glandular tissue). There are multiple segmental fine heterogeneous punctate calcifications in the left breast superior l ateral quadrant anterior depth. These are more prominent and increased in number. No other significant masses, calcifications, or other findings are seen in either breast. IMPRESSION: INCOMPLETE: NEEDS ADDITIONAL IMAGING EVALUATION The multiple segmental fine heterogeneous punctate calcifications in the left breast are indeterminat e. Additional views with possible ultrasound are recommended. Based on the Tyrer Cuzick model (a risk assessment model) the patients lifetime risk is 6.3% and her 10 year risk is 2.7%. According to the ACR, ACS, and NCCN guidelines, an annual breast MRI exam ariel g with mammogram is recommended if the patients lifetime risk is 20% or greater. This exam was interpreted at Station ID: [id number]. NOTE: For mammograms, a report in lay terms will be sent to the patient. Approximately 15% of breast malignancies will not be visualized mammographically. In the management of a palpable breast mass, a negative mammogram must not discourage biopsy of a clinically suspicious lesion. Electronically Signed By: Yulia mari/penrad:01/20/2022 11:14:21 ACR BI-RADS Category 0: Incomplete 3340F PARENCHYMAL PATTERN: (F) - The breast(s) demonstrate(s) diffuse fatty replacement. BI-RADS CATEGORY: (0) - 0 Mammo and [place] [id number] Immediate follow-up LATERALITY: (B)
== END 2022-01-19 14:38 | disposition home or self-care (01) ==
LOC: DI.N 14:37
DX: Z12.31 Encounter for screening mammogram for malignant neoplasm of breast (principal); R92.1 Mammographic calcification found on diagnostic imaging of breast

== ENCOUNTER 2022-02-11 10:18 | Outpatient (CLI) | payer OTHER ==
--- NOTE | 2022-02-14 11:10 | Mammography Report ---
UNILATERAL LEFT DIGITAL DIAGNOSTIC MAMMOGRAM 3D/2D: 02/11/2022 CLINICAL: Patient returns for magnification views of microcalcifications in the left breast. Comparison is made to exams dated: 01/19/2022 mammogram, 11/16/2020 mammogram, 01/22/2019 mammogram, mammogram, and 05/12/2015 mammogram - [facility]. There are scattered areas of fibroglandular density in the left breast (category b / 25%-50% glandula r tissue). There are multiple stable benign segmental punctate round calcifications in the left breast superior lateral quadrant anterior depth. There is also milk of calcification which is benign. No other significant masses or calcifications are seen in the breast. IMPRESSION: BENIGN There is no mammographic evidence of malignancy. Left breast calcifications are stable on prior mammogram. There is also benign milk of calcification. Exam findings were conveyed to the patient. A 1 year screening mammogram is recommended. Based on the Tyrer Cuzick model (a risk assessment model) the patients lifetime risk is 9.5% and her 10 year risk is 4.1%. According to the ACR, ACS, and NCCN guidelines, an annual breast MRI exam ariel g with mammogram is recommended if the patients lifetime risk is 20% or greater. This exam was interpreted at Station ID: [id number]. NOTE: For mammograms, a report in lay terms will be sent to the patient. Approximately 15% of breast malignancies will not be visualized mammographically. In the management of a palpable breast mass, a negative mammogram must not discourage biopsy of a clinically suspicious lesion. Electronically Signed By: Jerel Moody M.D. slc/:02/11/2022 10:59:46 ACR BI-RADS Category 2: Benign Finding(s) 3342F PARENCHYMAL PATTERN: (A) - The breast(s) demonstrate(s) scattered fibroglandular densities. BI-RADS CATEGORY: (2) - 2 RECOMMENDATION: (ANNUAL) - Recommend routine annual screening mammography. [id number] 1 year screening LATERALITY: (B)
== END 2022-02-11 10:19 | disposition home or self-care (01) ==
LOC: DI 10:18
PROVIDERS: ATTEND Nurse Practitioner Family
DX: R92.1 Mammographic calcification found on diagnostic imaging of breast (principal)

== ENCOUNTER 2022-08-03 11:17 | Outpatient (CLI) | payer OTHER ==
[2022-08-03 18:36] LABS: BASOPHILS % (AUTO) 0.6 %; EOSINOPHILS # (AUTO) 0.1 10^3/uL (0.0-0.7); EOSINOPHILS % (AUTO) 2.1 %; HCT - HEMATOCRIT 41.2 % (37.0-47.0); HGB - HEMOGLOBIN 12.8 g/dL (12.0-16.0); LYMPHOCYTES # (AUTO) 2.5 10^3/uL (1.5-3.5); LYMPHOCYTES % (AUTO) 36.6 %; MEAN CORPUSCULAR HGB CONC 31.1 g/dL (32.0-36.0); MEAN CORPUSCULAR VOLUME 93.4 fL (81.0-99.0); MEAN PLATELET VOLUME 10.3 fL (7.9-10.8); MONOCYTES # (AUTO) 0.5 10^3/uL (0.0-1.0); MONOCYTES % (AUTO) 6.9 %; NEUTROPHILS # (AUTO) 3.7 10^3/uL (1.5-6.6); NEUTROPHILS % (AUTO) 53.7 %; PLT - PLATELET COUNT 284 10^3/uL (130-450); RED BLOOD COUNT 4.41 10^6/uL (4.20-5.40); RED CELL DISTRIBUTION WIDTH 14.9 % (12.0-15.0); WHITE BLOOD COUNT 6.8 x10^3/uL (4.8-10.8)
[2022-08-03 18:57] LABS: ALBUMIN 4.3 g/dL (3.2-5.5); ALBUMIN/GLOBULIN RATIO 1.7 (1.0-2.2); ALKALINE PHOSPHATASE 85 IU/L (42-121); ALT ALANINE AMINOTRANSFERASE 19 IU/L (10-60); AST ASPARTATE AMINOTRANSFERASE 19 IU/L (10-42); BILIRUBIN,TOTAL 1.3 mg/dL (0.2-1.0); BUN - BLOOD UREA NITROGEN 21 mg/dL (6-20); CALCIUM 9.3 mg/dL (8.5-10.3); CARBON DIOXIDE - CO2 28 mmol/L (21-32); CHLORIDE 107 mmol/L (101-111); CHOL/HDL RATIO 4.2 (<4.4); CHOLESTEROL 179 mg/dL; CREATININE 0.6 mg/dL (0.4-1.0); GFR - MDRD 101 (>89); GLUCOSE 92 mg/dL (70-100); HDL CHOLESTEROL 43 mg/dL; LDL CHOLESTEROL,CALCULATED 104 mg/dL; LDL/HDL RATIO 2.4 (<4.4); POTASSIUM 4.1 mmol/L (3.5-5.0); SODIUM 140 mmol/L (135-145); TOTAL PROTEIN 6.9 g/dL (6.7-8.2); TRIGLYCERIDES 161 mg/dL; VLDL CHOLESTEROL 32 mg/dL
[2022-08-03 19:07] LABS: THYROID STIMULATING HORMONE 2.74 uIU/mL (0.34-5.60)
[2022-08-03 21:04] LABS: ESTIMATED AVERAGE GLUCOSE 103 mg/dL (70-100); HEMOGLOBIN A1c% 5.2 % (4.27-6.07)
== END 2022-08-03 11:18 | disposition home or self-care (01) ==
LOC: LAB.N 11:17
PROVIDERS: ATTEND Nurse Practitioner Family
DX: I10 Essential (primary) hypertension (principal); E78.5 Hyperlipidemia, unspecified; E66.01 Morbid (severe) obesity due to excess calories
CPT/HCPCS: 36415; 80053; 80061; 83036; 83721; 84443; 85025

== ENCOUNTER 2023-01-25 09:19 | Outpatient (CLI) | payer OTHER ==
--- NOTE | 2023-01-26 11:18 | Mammography Report ---
BILATERAL DIGITAL SCREENING MAMMOGRAM 3D/2D: 01/25/2023 CLINICAL: Routine screening. Comparison is made to exams dated: 02/11/2022 mammogram, 01/19/2022 mammogram, 11/16/2020 mammogram, 1 mammogram, 05/20/2016 mammogram, and 05/12/2015 mammogram - [facility]. There are scattered areas of fibroglandular density in both breasts (category b / 25%-50% glandular t issue). There is a stable benign focal asymmetry in the right breast. There also are stable benign calcifica tions in the left breast. No significant masses, calcifications, or other findings are seen in either breast. There has been no significant interval change. IMPRESSION: BENIGN There is no mammographic evidence of malignancy. A 1 year screening mammogram is recommended. Based on the Tyrer Cuzick model (a risk assessment model) the patients lifetime risk is 9.2% and her 10 year risk is 4.1%. According to the ACR, ACS, and NCCN guidelines, an annual breast MRI exam ariel g with mammogram is recommended if the patients lifetime risk is 20% or greater. This exam was interpreted at Station ID: [id number]. NOTE: For mammograms, a report in lay terms will be sent to the patient. Approximately 15% of breast malignancies will not be visualized mammographically. In the management of a palpable breast mass, a negative mammogram must not discourage biopsy of a clinically suspicious lesion. Electronically Signed By: Ted campbell/chiqui:01/25/2023 13:28:46 letter sent: No_Letter ACR BI-RADS Category 2: Benign Finding(s) 3342F PARENCHYMAL PATTERN: (A) - The breast(s) demonstrate(s) scattered fibroglandular densities. BI-RADS CATEGORY: (2) - 2 Mammogram [id number] 1 year screening LATERALITY: (B)
== END 2023-01-25 09:20 | disposition home or self-care (01) ==
LOC: DI.N 09:19
DX: Z12.31 Encounter for screening mammogram for malignant neoplasm of breast (principal)

== ENCOUNTER 2023-05-02 10:41 | Day surgery (SDC) | payer OTHER ==
[2023-05-02] MEDS ORDERED: LACTATED RINGERS 1,000 ML IV ONE (10:55)
--- NOTE | 2023-05-02 11:36 | ANESTHESIA ---
Pre-Anesthesia VS, & Labs - Diagnosis SCREENING - Procedure COLONOSCOPY Vital Signs: Temp Pulse Resp BP Pulse Ox O2 Flow Rate 36 C L 88 18 100 05/02/23 10:58 05/02/23 10:58 05/02/23 10:58 05/02/23 10:58 Height: 5 ft 6 in Weight (kg): 141 kg Body Mass Index: 50.1 BMI Classification: Morbidly Obese - NPO Last Fluid Intake: 844 - Is Patient ?: No Home Medications and Allergies Home Medications: Ambulatory Orders Cholecalciferol [Vitamin D3] 50 mcg PO DAILY 04/27/23 Loratadine [Claritin] 10 mg PO DAILY 04/27/23 Erythromycin Base [Erythromycin] 500 mg PO BID 12/12/17 Furosemide 40 mg PO DAILY 12/12/17 Multivitamin [Multiple Vitamins] 1 each PO DAILY 12/12/17 [place]-3/Dha/Epa/Fish Oil [Fish Oil 1,000 mg Softgel] 1 each PO BID 12/12/17 Solifenacin Succinate [Vesicare] 5 mg PO DAILY 12/12/17 allopurinoL [Allopurinol] 300 mg PO DAILY 12/12/17 lisinopriL [Lisinopril] 10 mg PO DAILY 12/12/17 Cholecalciferol [Vitamin D3] 50 mcg PO DAILY 04/27/23 Loratadine [Claritin] 10 mg PO DAILY 04/27/23 Allergies/Adverse Reactions: Allergies Allergy/AdvReac Type Severity Reaction Status Date / Time codeine Allergy Anxiety Verified 08/20/19 13:26 gelatin Allergy Unknown Verified 08/20/19 13:26 latex Allergy Rash Verified 08/20/19 13:26 sulfite Allergy Headache Verified 08/20/19 13:26 Anes History & Medical History - Anesthetic History Anesthesia Complications: reports: No previous complications Family history of Anesthesia Complications: Reports (REPORTS THAT MOTHER AND SISTER ARE SLOW TO COME OUT OF ANESTHESIA) Family history of Malignant Hyperthermia: Denies - Medical History Cardiovascular: reports: Hypertension, High cholesterol, Murmur (DOESN'T KNOW WHAT TYPE, SAW A BODY [employer] FLO[employer]ERSON IN 2017, HAD ECHO AND BUBBLE STUDY, SHE SAID THEY WERE NOT TOO CONCERNED, COULDN'T GIVE MORE DETAIL), Other (REPORTS RBBB, DOES REPORT SOME "CHEST PRESSURE" WHEN STRESSED OUT, SAYS SHE HAS "EDEMA" IN LEGS, SINCE HER PRE ECLAMPTIC YEARS AGO, DENIES CHF; NO PITTING EDEMA NOTED) Pulmonary: reports: None Gastrointestinal: reports: None, Cholelithiasis Urinary: reports: Kidney stones Neuro: reports: None Musculoskeletal: reports: Gout Endocrine/Autoimmune: reports: None Blood Disorders: reports: None Skin: reports: Eczema, Rosacea Smoking Status: Never smoker - Surgical History General: reports: Colonoscopy Eyes Ears Nose Throat (EENT): reports: Cataracts Gynecologic: reports: Other Exam General: Alert Dental: WNL Mouth Openin Fingerbreadth Neck Mobility: Normal Mallampati classification: II Thyromental Distance: 4-6 cm Plan Anesthesia Type: Total IV (IS OK WITH LIGHT ANESTHESIA, WOULDN'T MIND WATCHING, SAID SHE WATCHED LAST TIME, HIGH PAIN TOLERANCE, OK TO TITRATE LIGHT SEDATION TO COMFORT) Consent for Procedure(s) Verified and Reviewed: Yes Code Status: Attempt Resuscitation ASA classification: 3-Severe systemic disease Is this case an emergency?: No
[2023-05-02] MEDS ORDERED: PROPOFOL 200 MG/20 ML VIAL IVP ONE ×2 (11:42→12:15)
[2023-05-02] MEDS ORDERED: KETAMINE 200 MG/20 ML VIAL ONE (11:43)
[2023-05-02] MEDS ORDERED: MIDAZOLAM 2 MG/2 ML VIAL ONE (12:14)
[2023-05-02] MEDS ORDERED: LACTATED RINGERS 600 ML IV ONE ×2 (13:00)
[2023-05-02 13:11] VITALS: BP 124/83; O2SAT 98
--- NOTE | 2023-05-02 14:15 | ANESTHESIA POST OP EVALUATION ---
Anesthesia Post Eval - Post Anesthesia Eval Vitals: Last Vital Signs Temp 36.4 C L 05/02/23 13:08 Pulse 86 05/02/23 13:08 Resp 16 05/02/23 13:08 BP 124/83 H 05/02/23 13:08 Pulse Ox 98 05/02/23 13:08 O2 Flow Rate CV Function Including HR & BP: Stable Pain Control: Satisfactory Nausea & Vomiting: Negative Mental Status: Baseline Respiratory Status: Airway Patent Hydration Status: Satisfactory Anesthesia Complications: None
== END 2023-05-02 10:42 | disposition home or self-care (01) ==
LOC: SDS 10:41
PROVIDERS: ATTEND Surgery
PROC: 0DBN8ZZ Excision of Sigmoid Colon, Via Natural or Artificial Opening Endoscopic (ICD-10-PCS; principal; 2023-05-02 11:45)
DX: Z12.11 Encounter for screening for malignant neoplasm of colon (principal); K63.5 Polyp of colon; K57.30 Diverticulosis of large intestine without perforation or abscess without bleeding; E66.01 Morbid (severe) obesity due to excess calories; Z68.43 Body mass index [BMI] 50.0-59.9, adult; I45.10 Unspecified right bundle-branch block; R01.1 Cardiac murmur, unspecified
CPT/HCPCS: 45380; J3490; J7120

== ENCOUNTER 2023-07-25 10:12 | Outpatient (CLI) | payer OTHER ==
[2023-07-25 11:59] LABS: BASOPHILS % (AUTO) 0.6 %; EOSINOPHILS # (AUTO) 0.1 10^3/uL (0.0-0.7); EOSINOPHILS % (AUTO) 1.4 %; HCT - HEMATOCRIT 43.5 % (37.0-47.0); LYMPHOCYTES % (AUTO) 31.5 %; MEAN CORPUSCULAR HEMOGLOBIN 29.4 pg (27.0-31.0); MEAN CORPUSCULAR HGB CONC 32.2 g/dL (32.0-36.0); MEAN CORPUSCULAR VOLUME 91.2 fL (81.0-99.0); MEAN PLATELET VOLUME 10.1 fL (7.9-10.8); MONOCYTES # (AUTO) 0.5 10^3/uL (0.0-1.0); MONOCYTES % (AUTO) 7.1 %; NEUTROPHILS # (AUTO) 3.8 10^3/uL (1.5-6.6); NEUTROPHILS % (AUTO) 59.1 %; PLT - PLATELET COUNT 278 10^3/uL (130-450); RED BLOOD COUNT 4.77 10^6/uL (4.20-5.40); RED CELL DISTRIBUTION WIDTH 15.1 % (12.0-15.0); WHITE BLOOD COUNT 6.4 x10^3/uL (4.8-10.8)
[2023-07-25 12:14] LABS: ESTIMATED AVERAGE GLUCOSE 103 mg/dL (70-100); HEMOGLOBIN A1c% 5.2 % (4.27-6.07)
[2023-07-25 12:32] LABS: THYROID STIMULATING HORMONE 4.94 uIU/mL (0.34-5.60)
[2023-07-25 12:33] LABS: ALBUMIN 4.6 g/dL (3.2-5.5); ALKALINE PHOSPHATASE 100 IU/L (42-121); ALT ALANINE AMINOTRANSFERASE 18 IU/L (10-60); AST ASPARTATE AMINOTRANSFERASE 18 IU/L (10-42); BILIRUBIN,TOTAL 1.4 mg/dL (0.2-1.0); BUN - BLOOD UREA NITROGEN 15 mg/dL (6-20); CALCIUM 10.2 mg/dL (8.5-10.3); CARBON DIOXIDE - CO2 28 mmol/L (21-32); CHLORIDE 99 mmol/L (101-111); CHOL/HDL RATIO 4.6 (<4.4); CHOLESTEROL 212 mg/dL; CREATININE 0.7 mg/dL (0.6-1.3); GFR - MDRD 85 (>89); GLUCOSE 112 mg/dL (74-104); HDL CHOLESTEROL 46 mg/dL; LDL CHOLESTEROL,CALCULATED 131 mg/dL; LDL/HDL RATIO 2.8 (<4.4); POTASSIUM 3.8 mmol/L (3.5-4.5); SODIUM 135 mmol/L (135-145); TOTAL PROTEIN 6.9 g/dL (6.4-8.9); TRIGLYCERIDES 173 mg/dL (48-352); URIC ACID 5.4 mg/dL (2.3-6.6); VLDL CHOLESTEROL 35 mg/dL
== END 2023-07-25 10:13 | disposition home or self-care (01) ==
LOC: LAB.N 10:12
PROVIDERS: ATTEND Nurse Practitioner Family
DX: E78.5 Hyperlipidemia, unspecified (principal); R73.01 Impaired fasting glucose; E79.0 Hyperuricemia without signs of inflammatory arthritis and tophaceous disease
CPT/HCPCS: 36415; 80053; 80061; 83036; 83721; 84443; 84550; 85025